=== PATIENT | female | born 1990 | race African-American/Black ===

== ENCOUNTER 2022-03-19 17:53 | Emergency (ER) | payer OTHER, SELFPAY ==
[2022-03-19 18:17] VITALS: BP 110/89; PULSE 122; RESP 14; TEMP 37.4; O2SAT 100
--- NOTE | 2022-03-19 19:55 | ED.URI ---
HPI - URI/Sore Throat General Chief Complaint: Upper Respiratory Infection Stated Complaint: Body Aches/Headache/Sore Throat Time Seen by Provider: 03/19/22 19:55 Source: patient, RN notes reviewed and old records reviewed Mode of arrival: ambulatory Limitations: no limitations History of Present Illness HPI Narrative: 32-year-old female who presents to [facility] with complaints of body aches, headache, and sore throat, nasal stuffiness for 1 day duration. Patient reports that she has other family members with similar symptoms.. Patient reports that she has not taken any OTC medications for her symptoms. Patient denies any shortness of breath or any cough or wheezing. MD elicited complaint: cough, sore throat and other (headache) Onset (ago): day(s) (1) Consistency: constant Pain scale (0-10): 7 Able to tolerate fluids by mouth: Yes Treatments prior to arrival: none Related Data Allergies Allergy/AdvReac Type Severity Reaction Status Date / Time No Known Allergies Allergy Verified 03/19/22 18:26 Review of Systems Review of Systems: CONSTITUTIONAL:Reports malaise, chills, sweats, or fever. EYES: Denies visual changes, redness, or discharge. ENT: Reports rhinorrhea, congestion,no sinus pain, no otalgia positive for mild sore throat. CARDIOVASCULAR: Denies chest pain, palpitations, or edema. RESPIRATORY: No cough.? Denies dyspnea. GASTROINTESTINAL: Denies abdominal pain, nausea, vomiting, diarrhea SKIN: Denies rash or itching. MUSCULOSKELETAL:Reports myalgia. NEUROLOGIC Reports headache. All systems reviewed & are unremarkable except as noted in HPI and below PMFSH Past Medical History Medical History (Updated 03/26/22 @ 18:54 by Jessica Helms NP) No pertinent past medical history Surgical History Surgical History (Updated 03/26/22 @ 18:55 by Jessica Helms NP) No history of previous surgery Social History Social History (Updated 03/26/22 @ 18:54 by Jessica Helms NP) Smoking status: Never smoker Alcohol intake: unknown Substance use type: does not use Living arrangements: with family Gender identity (if verbalized by the patient): Female Comments At time of signature, agree with nursing past medical, surgical, social and family history. There is no relevant family history pertinent to the presenting complaint Exam Narrative: GENERAL: Well-appearing, well-nourished, and in no acute distress. HEAD: Normocephalic EYES: PERRLA, conjunctivae clear post ENT: Nares clear, turbinates edematous and erythematous, clear discharge. Mucous membranes moist. TM pearly null with dull light reflex bilaterally; no tragal tenderness. Oropharynx erythematous without lesions. Tonsils not enlarged and without exudate, no drooling, no hoarseness, no trismus, uvula midline.post nasal drainage NECK: Supple. No lymphadenopathy CHEST: Clear to auscultation, breath sounds equal. No wheezing, rhonchi, rales, or stridor. No respiratory distress, speaks in full sentences.SAO2 100% on room air HEART: Regular rate and rhythm. No murmur heard. SKIN: Warm, dry, no rash. NEURO: Alert and oriented x3. PSYCH: Normal mood and affect Course Course Emergency Course: Patient is aware of diagnosis, understands and agrees to treatment plan.? Anticipatory guidance given.? Patient agrees to follow-up as directed and is aware of reasons to seek care at the emergency department. Portions of this record may have been created with voice recognition software Level of Care: Express Care Visit Vital Signs Vital signs: Vital Signs Temperature 37.4 C 03/19/22 18:17 Pulse Rate 122 H 03/19/22 18:17 Respiratory Rate 14 03/19/22 18:17 Blood Pressure 110/89 03/19/22 18:17 Pulse Oximetry 100 03/19/22 18:17 Oxygen Delivery Room Air 03/19/22 18:17 Temperature 37.4 C 03/19/22 18:17 Pulse Rate 122 H 03/19/22 18:17 Respiratory Rate 14 03/19/22 18:17 Blood Pressure 110/89 1
== END 2022-03-19 20:24 | disposition home or self-care (01) ==
PROVIDERS: Emergency Provider Registered Nurse; PCP Family Medicine
DX: J11.1 Influenza due to unidentified influenza virus with other respiratory manifestations (principal)
CPT/HCPCS: 87804; 99213; G0463

== ENCOUNTER 2023-05-29 10:43 | Emergency (ER) | payer BC, SELFPAY ==
[2023-05-29 11:00] VITALS: BP 137/69; PULSE 86; RESP 18; TEMP 36.7; O2SAT 100
--- NOTE | 2023-05-29 11:04 | ED.URI ---
HPI - URI/Sore Throat General Chief Complaint: Upper Respiratory Infection Stated Complaint: Body pain/Chills/Sore Throat Time Seen by Provider: 05/29/23 11:01 Source: patient and RN notes reviewed Mode of arrival: ambulatory Limitations: no limitations History of Present Illness HPI Narrative: 33-year-old female presents with concern for body aches, chills, sore throat that started yesterday. She reports her daughter has influenza B and strep throat. She has not taken any medication for her symptoms MD elicited complaint: sore throat Related Data Allergies Allergy/AdvReac Type Severity Reaction Status Date / Time No Known Allergies Allergy Verified 12/20/22 12:47 Review of Systems Review of Systems: CONSTITUTIONAL: Reports malaise. Denies chills, sweats, or fever. EYES: Denies visual changes, redness, or discharge. ENT: Denies rhinorrhea, congestion, sinus pain, otalgia. Reports sore throat. CARDIOVASCULAR: Denies chest pain, palpitations, or edema. RESPIRATORY: Denies cough. Denies dyspnea. GASTROINTESTINAL: Denies abdominal pain, nausea, vomiting, diarrhea SKIN: Denies rash or itching. MUSCULOSKELETAL: Reports myalgia. NEUROLOGIC: Denies headache. All systems reviewed & are unremarkable except as noted in HPI and below PMFSH Past Medical History Medical History (Updated 05/29/23 @ 11:14 by Celine Bowman NP) No pertinent past medical history Surgical History Surgical History (System 12/20/22 @ 12:47 by Shekhar Rosen) No history of previous surgery Social History Social History (System 12/20/22 @ 12:47 by Shekhar Rosen) Smoking status: Never smoker Alcohol intake: unknown Substance use type: does not use Living arrangements: with family Gender identity (if verbalized by the patient): Female Comments At time of signature, agree with nursing past medical, surgical, social and family history. There is no relevant family history pertinent to the presenting complaint Exam Narrative: GENERAL: Well-appearing, well-nourished, and in no acute distress. HEAD: Normocephalic EYES: PERRLA, conjunctivae clear ENT: Nares clear, turbinates edematous and erythematous, clear discharge. Mucous membranes moist. TM pearly null with sharp light reflex bilaterally; no tragal tenderness. Oropharynx not erythematous without lesions. Tonsils not enlarged and without exudate, no drooling, no hoarseness, no trismus, uvula midline. NECK: Supple. No lymphadenopathy CHEST: Clear to auscultation, breath sounds equal. No wheezing, rhonchi, rales, or stridor. No respiratory distress, speaks in full sentences. HEART: Regular rate and rhythm. No murmur heard. SKIN: Warm, dry, no rash. NEURO: Alert and oriented x3. PSYCH: Normal mood and affect Course Course Emergency Course: Patient is aware of diagnosis, understands and agrees to treatment plan. Anticipatory guidance given. Patient agrees to follow-up as directed and is aware of reasons to seek care at the emergency department. Portions of this record may have been created with voice recognition software Level of Care: Express Care Visit Vital Signs Vital signs: Vital Signs Temperature 98.0 F 05/29/23 11:00 Pulse Rate 86 05/29/23 11:00 Respiratory Rate 18 05/29/23 11:00 Blood Pressure 137/69 05/29/23 11:00 Pulse Oximetry 100 05/29/23 11:00 Oxygen Delivery Room Air 05/29/23 11:00 Temperature 98.0 F 05/29/23 11:00 Pulse Rate 86 05/29/23 11:00 Respiratory Rate 18 05/29/23 11:00 Blood Pressure 137/69 05/29/23 11:00 Pulse Oximetry 100 05/29/23 11:00 Oxygen Delivery Room Air 05/29/23 11:00 Reviewed. MDM - URI/Sore Throat MDM Narrative Medical decision making narrative: Differential diagnosis considered: Hernandez virus, strep pharyngitis, allergic rhinitis, upper respiratory tract infection, sinusitis, rhinosinusitis, nasopharyngitis. viral pharyngitis, otitis media, otitis externa, pneumonia, bronchitis, viral c
== END 2023-05-29 11:18 | disposition home or self-care (01) ==
PROVIDERS: Emergency Provider Nurse Practitioner; PCP Family Medicine
DX: B34.9 Viral infection, unspecified (principal); Z20.822 Contact with and (suspected) exposure to COVID-19
CPT/HCPCS: 87081; 87426; 87804; 87880; 99213; G0463